=== PATIENT | male | born 1980 | race Caucasian/White ===

== ENCOUNTER 2017-10-10 01:35 | Emergency (ER) | payer SELFPAY ==
[2017-10-10 01:52] VITALS: RESP 16; TEMP 97.4
--- NOTE | 2017-10-10 02:19 | ED PDOC ---
HPI: Psych/Substance Abuse Time Seen by Provider: 10/10/17 02:09 Chief Complaint (Nursing): Substance Abuse Chief Complaint (Provider): clearance History Per: Patient Additional Complaint(s): 36-year-old male presents to emergency department for evaluation of possible substance abuse. Patient was found asleep on the sidewalk. He arrives via ambulance and admits to snorting one bag of heroin this evening. Patient denies use of any other drugs and denies any alcohol use. Past Medical History Reviewed: Historical Data, Nursing Documentation, Vital Signs Vital Signs: Last Vital Signs Temp 97.4 F L 10/10/17 01:47 Pulse 93 H 10/10/17 01:47 Resp 16 10/10/17 01:47 BP 109/72 10/10/17 01:47 Pulse Ox 96 10/10/17 01:47 - Medical History PMH: No Chronic Diseases - Family History Family History: States: No Known Family Hx - Living Arrangements Living Arrangements: Other (non domiciled) - Social History Drugs: Opiates (snorts heroin) Review of Systems ROS Statement: Except As Marked, All Systems Reviewed And Found Negative Psych: Positive for: Other (heroin abuse) Physical Exam - Reviewed Nursing Documentation Reviewed: Yes Vital Signs Reviewed: Yes - Physical Exam Appears: Positive for: Well, Non-toxic, No Acute Distress Skin: Negative for: Rash Eye Exam: Positive for: Normal appearance ENT: Positive for: Normal ENT Inspection Neck: Positive for: Normal Cardiovascular/Chest: Positive for: Regular Rate, Rhythm Respiratory: Positive for: Normal Breath Sounds Neurologic/Psych: Positive for: Other (arousable, answers some questions appropriately) - ECG O2 Sat by Pulse Oximetry: 96 Pulse Ox Interpretation: Normal Medical Decision Making Medical Decision Makin36 year old with heroin use Patient was observed in ED for several hours. His condition remained stable throughout his stay. 6:00 am - patient is awake, alert, has steady gait, he is stable for discharge. Disposition - Clinical Impression Clinical Impression: Heroin abuse - Patient ED Disposition Is Patient to be Admitted: No - Disposition Referrals: [facility] [place] [facility] [Outside] Disposition: Routine/Home Disposition Time: 06:00 Condition: STABLE Instructions: Opioid Use Disorder Forms: [employer] ([place])
[2017-10-10 05:53] VITALS: BP 112/76; PULSE 68; O2SAT 100
== END 2017-10-10 05:53 | disposition home or self-care (01) ==
LOC: H.ER 01:35
DX: F11.10 Opioid abuse, uncomplicated (principal)